=== PATIENT | female | born 1985 | race Asian ===

== ENCOUNTER 2017-06-21 06:28 | Inpatient (IN) | payer BC, SELFPAY ==
[~2017-06-21] VITALS: Ht 167.6 cm; Wt 93.9 kg
[2017-06-21] MEDS ORDERED: LR 1,000 ML IV SCH (06:41)
[2017-06-21] MEDS ORDERED: OXYTOCIN/NORMAL SALINE 1,000 ML IV SCH (06:41)
[2017-06-21] MEDS ORDERED: TERBUTALINE SULFATE 1 MG/ML VIAL SUBCUT ONE (06:45)
[2017-06-21] MEDS ORDERED: NALBUPHINE HCL 10 MG/ML AMP IVP PRN (06:45)
[2017-06-21] MEDS ORDERED: AMPICILLIN SODIUM 2 GM in NS 100 ML IV ONE (07:00)
[2017-06-21 07:05] VITALS: BP_SYST 107
[2017-06-21] MEDS ORDERED: FLU VACC QS 2017-18(36MOS+)/PF 0.5 ML/SYR SYRINGE I.M. PRN (07:15)
[2017-06-21] MEDS ORDERED: AMPICILLIN SODIUM 2 GM VIAL ONE (07:52)
[2017-06-21 07:57] LABS: BASOPHILS % (AUTO) 0.4 % (0.0-2.0); EOSINOPHILS # (AUTO) 0.1 K/uL (0.0-0.4); EOSINOPHILS % (AUTO) 1.3 % (0.0-4.0); HEMATOCRIT 36.5 % (36-48); HEMOGLOBIN 12.2 g/dL (12.0-16.0); LYMPHOCYTES # (AUTO) 1.2 K/uL (1.0-5.5); LYMPHOCYTES % (AUTO) 15.5 % (20.5-51.5); MEAN CORPUSCULAR HEMOGLOBIN 29 pg (27-31); MEAN CORPUSCULAR HGB CONC 34 % (32-36); MEAN CORPUSCULAR VOLUME 88 fL (79.0-98.0); MONOCYTES # (AUTO) 0.3 K/uL (0.0-1.0); MONOCYTES % (AUTO) 3.8 % (1.7-9.3); NEUTROPHILS # (AUTO) 6.4 K/uL (1.8-7.7); PLATELET COUNT (AUTO) 174 K/uL (130-430); RED BLOOD CELL COUNT(AUTO) 4.17 MIL/uL (4.2-6.2); RED CELL DISTRIBUTION WIDTH 12.6 % (9.0-15.0)
[2017-06-21] MEDS ORDERED: AMPICILLIN SODIUM 1 GM in NS 50 ML IV SCH (11:00)
[2017-06-21] MEDS ORDERED: FENT2mCg/mL-ROPIVA0.2%/NS EPID 150 ML EP ONE (13:01)
[2017-06-21] MEDS ORDERED: fentaNYL CITRATE/PF 100 MCG/2 ML AMP ONE (13:01)
[2017-06-21] MEDS ORDERED: LR 500 ML IV ONE (13:05)
[2017-06-21] MEDS ORDERED: fentaNYL CITRATE/PF 100 MCG/2 ML AMP IVP ONE ×2 (13:15)
[2017-06-21] MEDS ORDERED: FENT2mCg/mL-ROPIVA0.2%/NS EPID 150 ML EP SCH (13:15)
[2017-06-21] MEDS ORDERED: ePHEDrine sulfate 50 MG/ML VIAL IVP PRN (13:15)
[2017-06-21] MEDS ORDERED: METHYLERGONOVINE MALEATE 0.2 MG/ML AMP ONE (15:51)
[2017-06-21] MEDS ORDERED: OXYTOCIN 10 UNIT/ML VIAL ONE (15:51)
[2017-06-21] MEDS ORDERED: OXYTOCIN/NORMAL SALINE 1,000 ML IV ONE (15:52)
[2017-06-21] MEDS ORDERED: ANUSOL 1 EA SUPP.RECT (PREPARATION H) RC PRN (16:00)
[2017-06-21] MEDS ORDERED: OXYCODONE/ACETAMINOPHEN 5-325 TABLET PO PRN (16:00)
[2017-06-21] MEDS ORDERED: HYDROCORTISONE 0.5%, 28.35 GM TOPICAL CREAM TP PRN (16:00)
[2017-06-21] MEDS ORDERED: SENNOSIDES/DOCUSATE SODIUM 1 TAB TABLET(SENOKOT-S) PO PRN (16:00)
[2017-06-21] MEDS ORDERED: DERMOPLAST SPRAY TP PRN (16:00)
[2017-06-21] MEDS ORDERED: GLYCERIN/WITCH HAZEL (TUCKS PADS) TP PRN (16:00)
[2017-06-21] MEDS ORDERED: DOCUSATE SODIUM 100 MG CAPSULE PO PRN (16:00)
[2017-06-21] MEDS: OXYCODONE/ACETAMINOPHEN 5-325 TABLET PO PRN (20:56)
[2017-06-21] MEDS ORDERED: TEMAZEPAM 15 MG CAPSULE PO PRN (21:00)
[2017-06-21] MEDS: IBUPROFEN 800 MG TABLET PO PRN (23:56)
[2017-06-22] MEDS: OXYCODONE/ACETAMINOPHEN 5-325 TABLET PO PRN (04:21)
[2017-06-22] MEDS: IBUPROFEN 800 MG TABLET PO PRN ×2 (05:16→12:45)
[2017-06-22 07:00] LABS: HEMATOCRIT 32.2 % (36-48); HEMOGLOBIN 10.8 g/dL (12.0-16.0)
[2017-06-22] MEDS ORDERED: DIPH-TET-PERTUS Vaccine 0.5 ML VIAL (ADACEL) I.M. ONE (15:00)
== END 2017-06-22 17:05 | disposition home or self-care (01) | DRG 775 ==
LOC: SPU 06:28
PROVIDERS: ADMIT Specialist; ATTEND Specialist
PROC: 10E0XZZ Delivery of Products of Conception, External Approach (ICD-10-PCS; principal; 2017-06-21)
PROC: 3E0S3BZ Introduction of Anesthetic Agent into Epidural Space, Percutaneous Approach (ICD-10-PCS; 2017-06-21)
PROC: 00HU33Z Insertion of Infusion Device into Spinal Canal, Percutaneous Approach (ICD-10-PCS; 2017-06-21)
PROC: 0W8NXZZ Division of Female Perineum, External Approach (ICD-10-PCS; 2017-06-21)
PROC: 3E0P3VZ Introduction of Hormone into Female Reproductive, Percutaneous Approach (ICD-10-PCS; 2017-06-21)
PROC: 3E0234Z Introduction of Serum, Toxoid and Vaccine into Muscle, Percutaneous Approach (ICD-10-PCS; 2017-06-22)
DX: O99.824 Streptococcus B carrier state complicating childbirth (principal); Z23 Encounter for immunization; Z37.0 Single live birth; Z88.1 Allergy status to other antibiotic agents; Z3A.40 40 weeks gestation of pregnancy
CPT/HCPCS: 36415; 81002-TC; 85018-TC; 85025; 86592; 86886; 86900; 86901; 90715; J0290; J2210; J2590; J3010; J7120; Q2037